=== PATIENT | male | born 1965 | race Caucasian/White ===

== ENCOUNTER → 2017-03-16 | Outpatient (CLI) | payer OTHER | LOC: BMCIMAGING 13:57 | PROVIDERS: ATTEND Internal Medicine | DX: R05 Cough (principal) ==

== ENCOUNTER 2018-02-09 14:44 | Emergency (ER) | payer OTHER ==
--- NOTE | 2018-02-09 14:57 | EDPHY ---
H & P Stated Complaint: Left middle finger inj Time Seen by Provider: 02/09/18 14:54 HPI/ROS: CHIEF COMPLAINT: Left middle finger injury HISTORY OF PRESENT ILLNESS: The patient presents to the ED with the injury to his left middle finger. He sustained a complex laceration while working with a skill saw prior to arrival. The patient denies any additional injury. He reports tetanus shot is up-to-date. He does report loss of sensation at the tip of his finger. REVIEW OF SYSTEMS: A comprehensive 10 point review of systems is otherwise negative aside from elements mentioned in the history of present illness. Source: Patient Exam Limitations: No limitations - Personal History Current Tetanus/Diphtheria Vaccine: Yes - Medical/Surgical History Hx Asthma: No Hx Chronic Respiratory Disease: No Hx Diabetes: No Hx Cardiac Disease: No Hx Renal Disease: No Hx Cirrhosis: No Hx Alcoholism: No Other PMH: Denies - Social History Smoking Status: Never smoked - Physical Exam Exam: General Appearance: Alert, no distress Extremities: Complex laceration noted to the tip of the left middle finger Neurological: Decreased sensation to light touch in the soft tissues at the distal 3rd finger Vascular: Normal capillary refill Constitutional: Initial Vital Signs Heart Rate 61 02/09/18 14:47 Respiratory Rate 18 02/09/18 14:47 Blood Pressure 140/89 H 02/09/18 14:47 O2 Sat (%) 96 02/09/18 14:47 O2 Delivery Mode Room Air Allergies/Adverse Reactions: No Known Allergies Allergy (Unverified 02/09/18 14:50) Home Medications: Medication Instructions Recorded NK [No Known Home Meds] 02/09/18 Medical Decision Making - Diagnostics Imaging Results: Imaging Impressions Finger X-Ray 02/09/18 14:55 Impression: 1. Complex fragmented fractures associated with the distal left third distal phalanx. 2. Soft tissue laceration also noted adjacent to the fractures. Procedures: Procedure: Laceration repair. Verbal consent was obtained from the patient. The 3 cm laceration on the left middle finger was anesthetized using lidocaine. The wound was irrigated per protocol, draped and explored to its base with a gloved finger. The laceration went to the bone No tendon injury was identified. The wound was repaired with 4 0 Prolene sutures and a single 5 0 Ethilon suture. The wound repair was complex as it was comminuted, macerated and involved the nail bed. The procedure was performed by myself. ED Course/Re-evaluation: Patient presents to the ED with a open distal tuft fracture involving the left middle finger. The patient's wound was copiously irrigated after a digital block. The soft tissues have been closed. Patient is started on oral antibiotics. The patient is advised to follow up with the hand surgeon at [facility] Dr. Juni Vieyra Differential Diagnosis: Differential diagnosis considered includes fracture, sprain, dislocation Departure - Departure Disposition: Home, Routine, Self-Care Clinical Impression: Open fracture of tuft of distal phalanx of finger Condition: Good Instructions: Cephalexin (By mouth), Finger Fracture (ED) Additional Instructions: 1. Please schedule a follow-up appointment with a hand surgeon you have been referred to for a recheck in the next 2-3 days 2. Take antibiotics as directed 3. Sutures will need to be removed in 12 days. 4. Take Ibuprofen or Motrin 600 mg by mouth three times a day. [place] as needed for severe pain. Referrals: Juni Vieyra MD [Medical Doctor] - As per Instructions
[2018-02-09] MEDS ORDERED: CEPHALEXIN 500MG PREPACK#4 BTL TAKEHOME ONE (15:19)
[2018-02-09] MEDS ORDERED: CEPHALEXIN 500 MG CAP PO ONE ×2 (15:19→16:06)
[2018-02-09 16:28] VITALS: BP 133/78
== END 2018-02-09 16:09 | disposition home or self-care (01) ==
PROC: 0HQGXZZ Repair Left Hand Skin, External Approach (ICD-10-PCS; principal; 2018-02-09)
DX: S62.633B Displaced fracture of distal phalanx of left middle finger, initial encounter for open fracture (principal); W31.2XXA Contact with powered woodworking and forming machines, initial encounter; Y92.9 Unspecified place or not applicable; Y93.9 Activity, unspecified; Y99.9 Unspecified external cause status

== ENCOUNTER 2018-02-20 16:21 | Emergency (ER) | payer OTHER ==
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
[2018-02-20] MEDS ORDERED: KETOROLAC 30 MG/1 ML SDV IVP ONE (17:36)
[2018-02-20 18:01] LABS: PLATELET COUNT 244 10^3/uL (150-400)
[2018-02-20 18:02] VITALS: BP 120/86
--- NOTE | 2018-02-20 20:55 | CPEKG ---
Test Reason : OPEN Blood Pressure : / mmHG Vent. Rate : 067 BPM Atrial Rate : 067 BPM P-R Int : 165 ms QRS Dur : 121 ms QT Int : 405 ms P-R-T Axes : 046 066 050 degrees QTc Int : 428 ms Sinus rhythm Nonspecific intraventricular conduction delay Confirmed by Segun Rosario ([id number]) on 02/20/2018 8:54:40 PM Referred By: Confirmed By:Segun Rosario
== END 2018-02-20 18:55 | disposition home or self-care (01) ==
DX: M25.521 Pain in right elbow (principal)
CPT/HCPCS: 84484-ER; 96374; J1885